=== PATIENT | male | born 1955 | race Caucasian/White ===

== ENCOUNTER 2022-09-22 12:46 | Outpatient (REF) | payer MEDICARE, SELFPAY ==
[2022-09-22 13:02] VITALS: BMI 28.4
[2022-09-22 13:03] VITALS: BP 151/27; PULSE 88; RESP 16; TEMP 36.8; O2SAT 98
== END 2022-09-22 12:47 | disposition home or self-care (01) ==
LOC: HO.MS 12:46
PROVIDERS: PCP Internal Medicine; Visit Provider Ophthalmology
DX: H02.89 Other specified disorders of eyelid (principal); L57.0 Actinic keratosis
CPT/HCPCS: 88305; 88331